=== PATIENT | female | born 1940 ===

== ENCOUNTER 2025-03-26 05:41 | Day surgery (SDC) | payer OTHER ==
[2025-03-26] MEDS ORDERED: fentaNYL CITRATE 50 MCG/ML AMPUL IV ONE (10:15)
[2025-03-26] MEDS ORDERED: DIPHENHYDRAMINE HCL 50 MG/ML VIAL 1ML IV ONE (10:15)
[2025-03-26] MEDS ORDERED: MIDAZOLAM HCL 2 MG/2 ML VIAL IV ONE (10:15)
== END 2025-03-26 11:55 | disposition home or self-care (01) ==
LOC: AMB-ENDOS 05:41
PROVIDERS: ATTEND Surgery
DX: D12.8 Benign neoplasm of rectum (principal); K57.30 Diverticulosis of large intestine without perforation or abscess without bleeding; R19.5 Other fecal abnormalities